=== PATIENT | female | born 1950 | race Caucasian/White ===

== ENCOUNTER 2020-10-04 20:21 | Observation (INO) ==
[2020-10-05] MEDS ORDERED: Ondansetron 4 MG/2 ML VIAL IVP PRN (01:47)
[2020-10-05] MEDS ORDERED: Naloxone 0.4 MG/ML INJ IVP PRN (01:47)
[2020-10-05] MEDS ORDERED: Chloraseptic Spray 177 ML BOTTLE MM PRN (03:43)
[2020-10-05] MEDS ORDERED: 0.9 % Sodium Chloride 1,000 ML IVC ONE (04:04)
[2020-10-05 04:49] LABS: Basophils % 0.1 %; Hematocrit 42.2 % (35.3-44.9); Hemoglobin 13.9 g/dL (11.5-15.4); Immature Granulocytes % 0.3 % (0-4); Lymphocytes # 0.8 K/mcL (0.6-4.6); Lymphocytes % 5.6 %; Mean Corpuscular HGB Conc 32.9 g/dL (31.6-35.5); Mean Corpuscular Hemoglobin 28.3 pg (28.0-33.3); Mean Corpuscular Volume 85.9 fL (83.0-100.0); Mean Platelet Volume 10.2 fL (9.4-12.4); Monocytes # 0.6 K/mcL (0.0-1.3); Monocytes % 4.3 %; Neutrophils # 12.4 K/mcL (1.6-8.9); Platelet Count 288 K/mcL (140-400); Red Blood Count 4.91 M/mcL (3.82-4.97); Red Cell Distribution Width 13.6 % (11.5-14.5); Segmented Neutrophils % 89.7 %; White Blood Count 13.9 K/mcL (4.3-11.1)
[2020-10-05 04:56] LABS: Alanine Aminotransferase 7 Units/L (7-52); Albumin/Globulin Ratio 1.7 (1.1-2.2); Alkaline Phosphatase 88 Units/L (34-104); Aspartate Amino Transferase 18 Units/L (13-39); BUN/Creatinine Ratio 38 (6-26); Bilirubin,Total 0.5 mg/dL (0.3-1.0); Blood Urea Nitrogen 21 mg/dL (8-23); Carbon Dioxide 24 mEq/L (23-29); Chloride 103 mEq/L (98-107); Globulin 2.4 g/dL (2.4-3.5); Glucose 144 mg/dL (70-105); Magnesium 2.2 mg/dL (1.6-2.6); Osmolality,Calculated 290 (280-300); Phosphorous 3.9 mg/dL (2.7-4.5); Potassium 3.9 mEq/L (3.5-5.1); Sodium 137 mEq/L (136-145); Total Protein 6.4 g/dL (6.4-8.9); eGFR For African Americans > 60 (> 60); eGFR For Non-African Americans > 60 (> 60)
[2020-10-05] MEDS ORDERED: Acetaminophen IV 1,000 MG/100 ML BAG IVPB ONE (10:52)
[2020-10-05] MEDS: Piperacillin/Tazobactam 3.375 GM in 0.9 % Sodium Chloride Mini Bag 100 ML IVPB SCH ×2 (16:29→23:17)
[2020-10-05] MEDS ORDERED: 0.9 % Sodium Chloride 1,000 ML IVC SCH (21:45)
[2020-10-06 03:19] LABS: Basophils % 0.4 %; Eosinophils # 0.2 K/mcL (0.0-0.6); Eosinophils % 1.7 %; Hematocrit 39.5 % (35.3-44.9); Hemoglobin 12.9 g/dL (11.5-15.4); Immature Granulocytes % 0.4 % (0-4); Lymphocytes # 1.6 K/mcL (0.6-4.6); Lymphocytes % 15.5 %; Mean Corpuscular HGB Conc 32.7 g/dL (31.6-35.5); Mean Corpuscular Hemoglobin 28.5 pg (28.0-33.3); Mean Corpuscular Volume 87.4 fL (83.0-100.0); Mean Platelet Volume 10.1 fL (9.4-12.4); Monocytes # 0.8 K/mcL (0.0-1.3); Monocytes % 7.5 %; Neutrophils # 7.9 K/mcL (1.6-8.9); Platelet Count 290 K/mcL (140-400); Red Blood Count 4.52 M/mcL (3.82-4.97); Red Cell Distribution Width 14.1 % (11.5-14.5); Segmented Neutrophils % 74.5 %; White Blood Count 10.6 K/mcL (4.3-11.1)
[2020-10-06 03:44] LABS: Blood Urea Nitrogen 15 mg/dL (8-23); Calcium 8.7 mg/dL (8.6-10.3); Carbon Dioxide 27 mEq/L (23-29); Chloride 107 mEq/L (98-107); Glucose 124 mg/dL (70-105); Magnesium 2.4 mg/dL (1.6-2.6); Osmolality,Calculated 296 (280-300); Potassium 3.5 mEq/L (3.5-5.1); Sodium 142 mEq/L (136-145)
[2020-10-06 04:32] LABS: BUN/Creatinine Ratio 22 (6-26); eGFR For African Americans > 60 (> 60); eGFR For Non-African Americans > 60 (> 60)
[2020-10-06] MEDS: Piperacillin/Tazobactam 3.375 GM in 0.9 % Sodium Chloride Mini Bag 100 ML IVPB SCH (08:15)
[2020-10-07 06:46] LABS: BUN/Creatinine Ratio 14 (6-26); Blood Urea Nitrogen 10 mg/dL (8-23); Calcium 8.8 mg/dL (8.6-10.3); Carbon Dioxide 29 mEq/L (23-29); Chloride 105 mEq/L (98-107); Glucose 111 mg/dL (70-105); Magnesium 2.3 mg/dL (1.6-2.6); Osmolality,Calculated 292 (280-300); Potassium 3.1 mEq/L (3.5-5.1); Sodium 141 mEq/L (136-145); eGFR For African Americans > 60 (> 60); eGFR For Non-African Americans > 60 (> 60)
[2020-10-07] MEDS ORDERED: Potassium Chloride Elixir 20 MEQ/15 ML UDC PO ONE (07:47)
[2020-10-08 07:21] LABS: BUN/Creatinine Ratio 16 (6-26); Blood Urea Nitrogen 12 mg/dL (8-23); Calcium 9.3 mg/dL (8.6-10.3); Carbon Dioxide 27 mEq/L (23-29); Chloride 105 mEq/L (98-107); Glucose 116 mg/dL (70-105); Magnesium 2.1 mg/dL (1.6-2.6); Osmolality,Calculated 291 (280-300); Potassium 3.9 mEq/L (3.5-5.1); Sodium 140 mEq/L (136-145); eGFR For African Americans > 60 (> 60); eGFR For Non-African Americans > 60 (> 60)
[2020-10-08 08:38] VITALS: BP 127/71
== END 2020-10-08 12:19 | disposition home or self-care (01) ==
LOC: 3ANU → SUATTDRO 10-05 01:30
PROVIDERS: ADMIT Internal Medicine; ATTEND Internal Medicine